=== PATIENT | female | born 2000 | race Two or more races ===

== ENCOUNTER 2024-06-24 08:12 | Outpatient (RCR) | payer MEDICAID, SELFPAY | END 2024-06-24 23:59 | disposition home or self-care (01) | LOC: CPTX 08:12 | PROVIDERS: PCP Internal Medicine; Referring Provider Internal Medicine; Visit Provider Internal Medicine | DX: Z53.8 Procedure and treatment not carried out for other reasons (principal) ==

== ENCOUNTER → 2024-12-11 | Outpatient (CLI) | payer MEDICAID, SELFPAY ==
--- NOTE | 2024-12-11 10:37 | XR_ITS ---
Examination: Right knee 2 views Technique one AP lateral right knee 2 views Date and time: December 11, 2024 1057 hours INDICATIONS: Right knee pain beginning 4 days ago. FINDINGS: Minimal narrowing medial joint space Minimal spur formation posterior surface patella. No fracture or dislocation IMPRESSION: Minimal osteoarthritis
== END | disposition home or self-care (01) ==
LOC: CDIM 10:29
PROVIDERS: PCP Internal Medicine
DX: M17.11 Unilateral primary osteoarthritis, right knee (principal)
CPT/HCPCS: 73560